=== PATIENT | male | born 1975 | race Caucasian/White ===

== ENCOUNTER 2021-01-30 09:20 | Observation (INO) | payer OTHER, SELFPAY ==
--- NOTE | 2021-01-30 10:29 | PC.NURSE ---
Day shift: Pt on AC unit at approx 1030. Direct admit for [facility]. He is here for chest pain. Trops x3 neg per RN report. He can ambulate and is steady on his feet. Dr Vicente made aware that he is here now (1040). Spouse in room for support. Denies any chest pain or nausea. VS WNL. HR 79. RA 99%. BP 133/70. Oriented to room and call light. Call light in reach. NOt a high fall risk.
--- NOTE | 2021-01-30 10:49 | PC.NURSE ---
Day shift: Pt from [facility] not from [facility] as written in first note.
[2021-01-30 10:50] VITALS: BMI 41.3
[2021-01-30] MEDS: INFLUENZA VACCINE 0.5 ML SYRINGE IM (11:51)
[2021-01-30 13:00] VITALS: BP 130/77; PULSE 84; RESP 23; TEMP 36.7; O2SAT 96
--- NOTE | 2021-01-30 13:05 | PC.NURSE ---
Day shift: Pt here from [facility] (direct admit) at approx 1100. He is A&Ox4. Denies any chest pain or nausea. VS remain WNL. RA 99%. Stress test and echo to be ordered by MD (likely). Pt would like to establish w/ motion study engineer. Pt has Hx of TN in 2014 w/ 2 stents being placed. He is low fall risk and steady on his feet. IV in rt FA is SL. OOB and independent to BR. No MD orders placed at this time. Tele ordered and is NSR per ICU at this time.
--- NOTE | 2021-01-30 13:58 | PC.NURSE ---
Day shift: MD orders ordered and Pt informed of the orders. Tele, SCD's, NPO at midnight, stress test tomorrow, and chest pain (AL) meds. Will continue w/ plan of care.
[2021-01-30 14:03] VITALS: O2SAT 99
[2021-01-30 14:48] LABS: Cholesterol 241 mg/dL (140-199); HDL Cholesterol 35 mg/dL (40-60); LDL Cholesterol Calculated 159 mg/dL (<100); Triglycerides 236 mg/dL (35-150)
[2021-01-30 14:58] LABS: Troponin I < 0.012 ng/mL (0.01-0.034)
[2021-01-30 16:34] VITALS: BP 132/74; PULSE 75; RESP 18; TEMP 36.2; O2SAT 96
--- NOTE | 2021-01-30 17:12 | P.HP_ITS ---
History of Present Illness History of Present Illness Date Patient Seen: 01/30/21 Chief complaint: chest pain Narrative: The patient is a 45-year-old male with a history of, hypertension, hyperlipidemia, and coronary disease status post myocardial infarction in 2017. The patient underwent 2 drug-eluting stents placement at that time. Patient had 1 stent to the mid LAD and 1 placed in the proximal LAD. He had no further symptoms following his procedures. Patient underwent a stress test approximately 1 year ago on August 14 2018. The stress test was unremarkable and showed no evidence of ischemia, no wall motion abnormalities, and no LV dysfunction. Te patient had been well until this morning when EN route to work while driving he developed chest tightness. The patient reports this happened at about 530 in the morning. When he arrived at work he took 1 nitro which did not resolve his symptoms. He said he rated it at about 8 out a 9 in 10. There was no radiation to his arm. There was no diaphoresis. No nausea. Patient did feel hot. He took a 2nd nitro 5 minutes later and had no resolution of his pain. As such she went to [facility] for evaluation. At [facility] the patient underwent an EKG which showed no acute ST T wave changes. Troponin was negative. He was transferred to [facility] in [place] for definitive workup of unstable angina. Patient had a heart score of 5. Patient reports he was treated with aspirin and Plavix following stent placement but that has discontinued it. He has been off his statin for the past 2 months. Patient is admitted to the hospital for definitive workup and evaluation of chest pain. Patient History Medical History (Updated 01/30/21 @ 17:26 by Jil Vicente MD) Heart attack Hyperlipemia Hypertension Obstructive sleep apnea Surgical History Stented coronary artery Family & Social History Family History (Updated 01/30/21 @ 17:17 by Jil Vicente MD) Mother Heart disease Diabetes mellitus Social History: household members spouse Prior Living Arrangements House Safety & Behavioral: Feels Safe in Current Yes Environment Been Physically Hurt or No Threatened By a Person Suicidal Ideation Description None Suicide Plan Description No Plan Tobacco & Substance use: Tobacco type cigarettes Smoking Status Former smoker alcohol intake current alcohol intake frequency holiday/special occasion Meds Home Medications and Allergies Home Medications Medication Instructions Recorded Confirmed Type aspirin [Adult Aspirin] 81 mg PO DAILY 01/30/21 01/30/21 History atorvastatin 80 mg PO DAILY 01/30/21 01/30/21 History lisinopril 10 mg PO DAILY 01/30/21 01/30/21 History nitroglycerin 0.4 mg SUBLINGUAL Q5-15M PRN 01/30/21 01/30/21 History Allergies Allergy/AdvReac Type Severity Reaction Status Date / Time bee venom protein (honey bee) Allergy Verified 01/30/21 11:29 Penicillins AdvReac Intermediate Verified 01/30/21 11:28 Review of Systems Review of Systems ROS: Yes All systems reviewed with the patient and are negative except as otherwise documented Exam Vital Signs (past 8 hours): - 01/30/21 13:00 01/30/21 14:03 01/30/21 16:34 Temperature 98.1 F 97.2 F L Pulse Rate 84 75 Respiratory Rate 23 18 Blood Pressure 130/77 132/74 Pulse Oximetry 96 99 96 Oxygen Delivery Method Room Air Oxygen Flow Rate 0 Narrative Exam Narrative: Pleasant gentleman lying in bed in no obvious distress HEENT: Normocephalic atraumatic, extraocular muscles are intact, oropharynx clear, neck is supple, Lungs: Clear to auscultation Cardiac exam: Regular rate and rhythm normal S1-S2 Abdomen: Soft nontender nondistended no appreciable hepatosplenomegaly Extremities: No edema Neuro exam: Cranial nerves 2-12 are intact strength is symmetric and sensation grossly intact gait is not assessed Psychiatric exam: Patient is awake and alert, answers questions appropriately normal mood, normal affect, no hallucination Objective Labs Labs: Laboratory Results - last 24 hr 01/30/21 01/30/21 14:15 14:15 Troponin I < 0.012 Triglycerides 236 H Cholesterol 241 H LDL Cholesterol, Calc 159 H HDL Cholesterol 35 L Assessment & Plan Assessment & Plan narrative: Impression 1. 45-year-old male with a history of coronary disease, remote history of myocardial infarction in 2016 followed by placement of 2 drug-eluting stents in the mid LAD and proximal LAD. Patient did have a stress test in August 2018 which was unremarkable. Patient presents again with significant clinical symptomatology of chest pain, given his history of hypertension hyperlipidemia and history of myocardial infarction coupled with a heart score 5 he is at high risk for recurrent coronary disease. As such the patient will be admitted to the hospital for rule out myocardial infarction. His initial cardiac enzymes are unremarkable. His initial EKG shows no acute ST-T changes and sinus rhythm. Patient is scheduled for a stress test tomorrow. His initial lipids came back markedly elevated with an LDL of 149. Patient will be placed on aspirin, resume his atorvastatin, nitro as needed, and morphine for pain 2. Hypertension Continue Lisinopril 3. Hyperlipidemia -resume atorvastatin 4. Morbid obesity -dietary consultation, patient's obesity puts him at high risk of increasing morbidity mortality given his history of hyperlipidemia and history of coronary disease will ask for dietary consultation 5. Obstructive sleep apnea Patient has a surrogate caregiver who is his was at the bedside Patient with placed on DVT prophylaxis Patient is a full code Patient will be admitted under observation with anticipated plan for discharge tomorrow
[2021-01-30 20:56] VITALS: BP 134/82; PULSE 76; RESP 18; TEMP 36.4
[2021-01-30 21:54] LABS: Troponin I < 0.012 ng/mL (0.01-0.034)
[2021-01-30] MEDS: ATORVASTATIN 20 MG TABLET 80 MG PO (21:56)
[2021-01-31] VITALS (7 sets, daily range): BP systolic 106–138; BP diastolic 64–89; PULSE 66–88; RESP 18–22; TEMP 36.3–36.6; O2SAT 94–99
--- NOTE | 2021-01-31 00:30 | PC.NURSE ---
0010: patient is alert and oriented. Breath sounds CTA with RA sat of 95%. HRR w/telemetry reading of SR. Denies nausea. BT present and is passing flatus. Denies dysuria, frequency or urgency with urination. Independent with mobility. Denies chest pain or SOB. Denies any pain/discomfort. Declines to wear SCD's so reminded to ankle wave. NPO after 0000 for stress test in a.m. Fall risk score is low.
[2021-01-31] MEDS: ENOXAPARIN 40 MG/0.4 ML SYRINGE SUBCUT (09:27)
[2021-01-31] MEDS: ASPIRIN EC 81 MG TABLET PO (09:27)
[2021-01-31] MEDS: lisinopriL 10 MG TABLET PO (09:27)
[2021-01-31] MEDS: SODIUM CHLORIDE 0.9% FLUSH 10 ML IV (09:27)
--- NOTE | 2021-01-31 12:35 | PC.NURSE ---
Day shift: Pt off unit at approx 1235 for stress test.
--- NOTE | 2021-01-31 13:53 | PC.NURSE ---
Day shift: Pt remains off of AC unit (1400).
--- NOTE | 2021-01-31 14:18 | PC.NURSE ---
Day shift: Pt back on AC unit at approx 1415 from stress test. Per Nuclear Med RN ok for Pt to eat and have caffeine now. Awaiting MD to read test. Placed back on tele. Pt denies any chest pain or nausea. Back in bed and resting comfotably w/ no complaints. He did ask when he can go home.
--- NOTE | 2021-01-31 15:33 | CM.DANOTE ---
Discharge Planning/Care Management DCP: assessment: case received and discussed in Team Rounds. Met now with pt and his Lydia. Pt is a 45 year old who has just moved here from [place] to [place] with intent to be close and helpful to aging family members. PCP: is not yet established. Payer: [employer] Pt has been in contact with cardiology: Dr. Craig and trying to secure an appointment. He asks when he will see a stud dairy cattle farmer as he states he was told last evening by nursing staff that a referral would be place. (left a vm for stud dairy cattle farmer on their extension.) Pt is waiting for Dr. Vicente to ready results off his stress test, completed this afternoon. DC likely today....DCP team will check in tomorrow if pt is still here. CM Discharge Assessment Start: 01/31/21 15:32 Freq: Status: Active Protocol: Document 01/31/21 15:32 ITV (Rec: 01/31/21 15:33 ITV [id number]) Discharge Planning Assessment Advance Directives? No Advance Directives on File No History Provided By Medical Record Prior Living Arrangements House Household Members spouse Independent with ADL's Yes Is patient alert and oriented? Yes
--- NOTE | 2021-01-31 17:16 | DIET.PN ---
Dietary Progress Note Assessment: 45y M admitted for chest pain referred to nutrition for HLD and obesity. Pt has pmhx of HTN, HLD, CAD, NC in 2017 c 2 stents. Pt stopped some of his medication including his statin which was causing large muscle group issues. 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 Barriers to good nutrition include: pt and are exhausted after work, doesn't cook, so often reliant on take out including pepperoni or sausage pizza. Pt packs lunch daily but often take out leftovers. Pt endorses drinking Mountain Dew a few times per week. Pt has tried several wheat breads but does not like them. Pt enjoys cooking but is often fatty meat based (prime rib, roast). Pt does like many seasonings such as garlic, thyme, and hot peppers. Pt now only buys 93% lean ground beef and is trying to be better with his added sodium intake. HT: 185cm WT: 143kg BMI: 41 Labs: TG 236 H, TC 241 H, LDL 159 H, HDL 35 L Nutrition Diagnosis: undesirable food choices r/t nutrition related knowledge deficit and picky eating aeb pt had NC before 45y, BMI 41, TG 236, TC 241, LDL 159, HDL 35, pt reports not liking wheat bread, turkey, pt reports regular intake of high saturated fat foods including mayonnaise, cheese, prime rib. Interventions: 1. Educated pt on role of dietary choices in his current health state. Discussed saturated fat, cholesterol. Pt willing to cut red meat back to 1-2x/mo, pt willing to cut back on cheese and to eat more chicken and pork loin. Pt does not like turkey or fish. 2. Educated pt on role of dietary fiber, especially soluble fiber on cardiovascular health. Pt likes refried beans and willing to only choose vegetarian version, pt willing to find recipes which use black beans to add in to rotation. 3. Recommend pt look into meal kit program such as [employer] to help take the stress out of meal planning and shopping a few days per week rather than choosing take out. It is similar if not cheaper with far higher quality fats and ingredients. 4. 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 Pt agreeable. EER: limit red meat and dairy, 2g Na max, 35g dietary fiber/d Monitoring/Evaluations: requested to see pt as outpatient to continue nutrition therapy
--- NOTE | 2021-01-31 17:21 | P.DS_ITS ---
History of Present Illness History of Present Illness Chief complaint: chest pain Narrative: The patient is a 45-year-old male with a history of, hypertension, hyperlipidemia, and coronary disease status post myocardial infarction in 2017. The patient underwent 2 drug-eluting stents placement at that time. Patient had 1 stent to the mid LAD and 1 placed in the proximal LAD. He had no further symptoms following his procedures. Patient underwent a stress test approximately 1 year ago on August 14 2018. The stress test was unremarkable and showed no evidence of ischemia, no wall motion abnormalities, and no LV dysfunction. Te patient had been well until this morning when EN route to work while driving he developed chest tightness. The patient reports this happened at about 530 in the morning. When he arrived at work he took 1 nitro which did not resolve his symptoms. He said he rated it at about 8 out a 9 in 10. There was no radiation to his arm. There was no diaphoresis. No nausea. Patient did feel hot. He took a 2nd nitro 5 minutes later and had no resolution of his pain. As such she went to [facility] for evaluation. At [facility] the patient underwent an EKG which showed no acute ST T wave changes. Troponin was negative. He was transferred to [facility] for definitive workup of unstable angina. Patient had a heart score of 5. Patient reports he was treated with aspirin and Plavix following stent placement but that has discontinued it. He has been off his statin for the past 2 months. Patient is admitted to the hospital for definitive workup and evaluation of chest pain. Discharge Providers Provider Date of admission: 01/30/21 09:20 Discharge Date: 01/31/21 Consults: 01/30/21 17:26 Consult to Dietitian, Adult Routine Comment: hyperlipidemia Reason For Exam: obesity Discharge provider: Jil Vicente MD Summary Hospital Course Discharge Diagnosis: 1. Chest pain, present on admission, stress test reveals normal perfusion no evidence of Ischemia 2. Hyperlipidemia 3. Hypertension 4. Morbid obesity, patient evaluated by solid fiber paster operator, started on outpatient dietary plan Hospital Course: Patient was admitted to the hospital having had an episode of substernal chest pressure when driving to work. His symptoms resolved in the emergency department. The patient had no recurrent symptoms. His cardiac enzymes were negative. His EKG was unremarkable. The patient did have a fasting lipid profile which was markedly elevated as the patient has been off his cholesterol medicine for the past month. He reports he does have a prescription at home but discontinued it due to some aching of the muscles. Patient has had no further pain since hospitalized. Given his perfusion scan showed no abnormality he will be discharged home with plans to follow-up as an outpatient with Dr. Diallo. The patient is currently looking for primary care provider in the [facility]. Patient had a total cholesterol of 241, with an LDL of 159. Status at Discharge Cognitive/behavioral status at discharge: oriented and calm ( ) Functional status at discharge: independent ambulation Overall status at discharge: patient is back to baseline Time Spent with Patient Time spent: Less than 30 minutes Exam Vital Signs (past 8 hours): - 01/31/21 11:59 01/31/21 12:04 01/31/21 15:46 Temperature 97.9 F 97.8 F Pulse Rate 72 88 Respiratory Rate 22 20 Blood Pressure 128/68 121/82 Pulse Oximetry 99 97 98 Oxygen Delivery Method Room Air Oxygen Flow Rate 0 Narrative Exam Narrative: Pleasant gentleman in no acute distress Lungs: Clear to auscultation Cardiac exam: Regular rate and rhythm normal S1-S2 with a 2/6 systolic ejection murmur Abdomen: Soft and nontender Extremities: No edema Objective Labs Labs: Laboratory Results - last 24 hr 01/30/21 21:25 Troponin I < 0.012 [facility] Medical History (Updated 01/30/21 @ 17:26 by Jil Vicente MD) Heart attack Hyperlipemia Hypertension Obstructive sleep apnea Surgical History Stented coronary artery Family History (Updated 01/30/21 @ 17:17 by Jil Vicente MD) Mother Heart disease Diabetes mellitus Social History household members: spouse Smoking Status: Former smoker alcohol intake: current Discharge Assessment & Plan Assessment and Plan Assessment: 1. Chest pain no evidence of ischemia 2. Hypertension 3. Hyperlipidemia 4. Morbid obesity Plan of Treatment: Discharge home Resume statin as an outpatient Continue dietary recommendation Follow-up with cardiology as scheduled Discharge Plan Discharge Plan Patient Disposition: Home Discharge orders & Medications Prescriptions: Continued Adult Aspirin 81 mg Tablet 81 mg PO DAILY RF: 0 lisinopril 10 mg tablet 10 mg PO DAILY RF: 0 atorvastatin 80 mg Tablet 80 mg PO DAILY RF: 0 nitroglycerin 0.4 mg Tablet, Sublingual 0.4 mg SUBLINGUAL Q5-15M PRN (Reason: Chest Pain) RF: 0 Diet/Activity/Treatments Diet: Low-fat and Low-sodium Activity: as tolerated Discharge Data Attending Provider: Jil Vicente
--- NOTE | 2021-01-31 17:38 | DI.NM.S_ITS ---
DATE OF SERVICE: PROCEDURE: Exercise perfusion study. DATE OF STUDY: 01/31/2021. INDICATIONS: Chest pain with known history of LAD stent in 2017 with hypertension and hyperlipidemia. RADIOPHARMACEUTICAL: 23.5 millicurie technetium-99m Myoview IV was injected at stress. Please note this is an exercise stress test perfusion study only. CARDIAC STRESS: The patient underwent exercise perfusion study under the supervision of an attending staff. Totally, he walked on Larry protocol for 8 minutes and 04 seconds. However, stage II of Larry protocol was maintained for the entire duration. The patient has significant dyspnea during exertion without any chest pain. Achieved 78% of target heart rate. Resting blood pressure 108/70 and peak blood pressure 160/72 mmHg. Functional aerobic impairment positive 67%. Maximum heart rate was about 137 beats per minute. Baseline rate and rhythm was sinus with diffuse repolarization changes. During stress, no convincing ischemic changes or arrhythmias seen. RAW DATA: There is increased subdiaphragmatic activity. Patient's weight is 313 pounds. GATED STUDY: Stress LV ejection fraction 85% without any obvious wall motion abnormalities. Stress end-diastolic volume 112 mL. Lung/heart ratio 0.37, which is within normal limits. MYOCARDIAL PERFUSION SCAN: Stress supine images revealed large size, moderate to severely decreased perfusion of inferior wall and inferior apex, which got completely resolved during prone images suggestive of diaphragmatic tissue attenuation artifact. On prone images, there was mildly decreased perfusion of distal anterior septum, which was not seen during stress supine suggestive of shifting tissue attenuation artifact. CONCLUSION: I will call this study a normal myocardial perfusion study with evidence of diaphragmatic tissue attenuation artifact which got completely resolved during stress prone images with evidence of some shifting tissue attenuation artifact as well. Poor exercise tolerance. Functional aerobic impairment positive 67%. Submaximal exercise stress test. The patient achieved 78% of target heart rate. Preserved left ventricular function without any obvious wall motion abnormalities. No significant arrhythmia seen. Discussed the findings with Dr. Vicente. Vargas Brizuela - JOE/tamar/jose doc#: [id number]/job#: [id number] dd: 01/31/2021 16:57:00 dt: 01/31/2021 17:20:00 DICTATING MD/COPIES TO: Marsha Anderson MD COPIES MNE: GRIFFIN;
--- NOTE | 2021-01-31 18:25 | PC.NURSE ---
Report received, care assumed. A&Ox3. VSS. Denies pain. Discharge orders received post-stress test. IV dc'd. Discharge instructions given orally and in writing. Pt. and spouse verbalize understanding. Pt. discharged via wheelchair to private vehicle.
--- OUTSIDE RECORDS SUMMARY | 2021-03-09 09:14 | XMS_ITS | Referral Summary ---
:1975 Author Organization [facility] Address [address] [place] [address] Care Team Providers Name Role Phone DO Merrick Primary Care Provider Reason for Referral Consultation (Routine) Status Reason Specialty Diagnoses / Referred By Referred To Procedures Contact Contact Authorized Specialty Sleep Medicine Diagnoses RADHA on CPAP [facility] DO [facility] Required [address] [place] [address] [place] [address] Phone: Fax: Electronically signed by Soryaa Sin DO atConsultation (Routine) Status Reason Specialty Diagnoses / Referred By Referred To Procedures Contact Contact Authorized Specialty Nutrition Diagnoses Mixed hyperlipidemia BMI 40.0-44.9, adult ([facility]/H[facility]) [facility] Services Required DO Soraya [address] [place] [address] [address] [place], Phone: [place] [phone] Electronically signed by Soraya Sin DO at Reason for Visit Reason Comments Establish Care Encounter Details Date Type Department Care Team Description 03/06/2021 Office Visit [facility] Soraya Sin DO Pre-diabetes (Primary Dx); [facility] Division [address] History of anaphylaxis; [place], [place] Mixed hyperlipidemia; [address] [place] [address] Division [address] BMI 40.0-44.9, adult ([facility]); [place] [phone] RADHA on CPAP; [place], [place] Coron emmy artery disease involving [place] coronary artery of [place] heart without angina pectoris; [address] Essential hypertension; [phone] Encounter for m edical examination to establish care; Rib pain on lef t side Allergies Active Allergy Reactions Severity Noted Date Comments Penicillins Anaphylaxis High 08/23/2017 Venom-Honey Bee Anaphylaxis High 07/14/2020 documented as of this encounter (statuses as of 03/08/2021) Medications Medication Sig Dispensed Refills Start End Date Status Date lisinopriL Take 10 mg by 0 Activ e (PRINIVIL) 10 mg mouth daily [address] 0.4 mg 0 Act jennifer (NITROSTAT) 0.4 mg under the tongue 0 SL tablet every 5 minutes as needed ezetimibe (ZETIA) Take 1 tablet 90 tablet 3 02/18/20 Active 10 mg tablet (10 mg total) by 1 22 mouth every morning rosuvastatin Take 1 tablet 90 tablet 3 02/18/20 Act jennifer (CRESTOR) 40 mg (40 mg total) by 1 22 tablet mouth nightly aspirin 81 mg Take 1 tablet 90 tablet 3 02/18/20 Ac tive chewable tablet (81 mg total) by 1 22 mouth daily multivitamin Take 1 tablet by 0 Active (multivitamin) mouth daily tablet tablet ascorbic acid, Take 1,000 mg by 0 Active vitamin C, mouth daily (vitamin C) 1,000 mg tablet co-enzyme Q-10 30 Take 30 mg by 0 Active mg capsule mouth 3 (three) times a day omega Take 2,000 mg by 0 Act jennifer [id number]-oux-fish oil mouth 2 (two) (Fish Oil) 1,000 times a day mg (120 mg-180 mg) capsule ashwagandha root Take by mouth 0 Active extract 300 mg capsule EPINEPHrine Inject 0.3 mL 2 each 3 04/05/20 Acti ve (EPIPEN) 0.3 (0.3 mg total) 1 21 mg/0.3 mL into the thigh injection as needed for syringeIndications anaphylaxis : History of anaphylaxis EPINEPHrine Inject 0.3 mg 0 03/06/20 Disc ontinued (EPIPEN) 0.3 into the thigh 0 21 (R eorder) mg/0.3 mL injection syringe documented as of this encounter (statuses as of 03/08/2021) Active Problems Problem Noted Date History of anaphylaxis 03/06/2021 Last Assessment & Plan: To bee stings and penicillin. Refilled EpiPen at this time Pre-diabetes 03/06/2021 Last Assessment & Plan: Repeat hemoglobin A1c ordered for furthe r risk stratification RADHA on CPAP 03/06/2021 Last Assessment & Plan: Reports compliance with CPAP. Continue. He would like to establish care with sleep medicine here Essential hypertension 03/06/2021 Last Assessment & Plan: Hypertension is well-controlled. Continue lisinopril 10 mg daily. Check home blood pressure readings Continue current treatment regimen. Dietary sodium restriction. Weight loss. Regular aerobic exercise. Blood pressure will be reassessed at the next regular appointment. Rib pain on left side 03/06/2021 Last Assessment & Plan: After a fall. Suspect contusion. No al arming findings on exam. Patient has stable vital signs. We discussed rib imaging b ut since symptoms are improving, we have decided to defer at this time. Continue conservative management Encounter for medical examination to establish care Last Assessment & Plan: Patient is due for Tdap but would like to get Covid vaccination first. Otherwise up-to-date on age-appropriate immunizations and screenings. Old VT (myocardial infarction) 02/17/2021 Mixed hyperlipidemia 02/17/2021 Last Assessment & Plan: Lipid abnormalities are unchanged. Nutritional counseling was provided. and Pharmacotherapy as ordered. Lipids will be reassessed in 6 months. CAD (coronary artery disease) 08/23/2017 Overview: 08/20/2017-LHC([employer]): EF 60-6 5%, MARY/ LAD, 20-30% L main stenosis, 30-40% stenosis of LCx, 40% stenosis of the mRCA. 08/20/2017-TTE ([employer]): EF 60- 65%, distal anteroseptal and apical hypokinesis Trace MR. Last Assessment & Plan: Formatting of this note might be differe nt from the original. Stable and asymptomatic at this time in regards to CAD. Continue aggressive secondary risk factor modification. Metoprolol has the propensity to contribute to weight gain. Given he is more than a yea r out from his VT with a normal LVEF, we will discontinue this and increase Lisinopril to 10 mg daily to see if he has an easier time losing weight. He will also stop Plavix as it has been two years si nce stent implantation. Call with any r ecurrence of anginal symptoms. Nitro refill given and use was reviewed. We discussed the importance of diet and exercise at length today. Last Assessment & Plan: Coronary artery disease is unchanged. Continue current treatment regimen. Dietary sodium restriction. Weight loss. Regular aerobic exercise. Continue to follow-up with cardiology as scheduled Cardiac status will be reassessed in 6 m [facility]. documented as of this encounter (statuses as of 03/08/2021) Social History Tobacco Use Types Packs/Day Years Used Date Former Smoker Quit: 08/2017 Smokeless Tobacco: Current User Chew Alcohol Use Drinks/Week oz/Week Comments Yes rare Sex Assigned at Date Recorded Not on file Job Start Date Occupation Industry Not on file Not on file Not on file documented as of this encounter Last Filed Vital Signs Vital Sign Reading Time Taken Comments Blood Pressure 114/77 03/06/2021 3:09 PM PDT Pulse 86 03/06/2021 3:09 PM PDT Temperature 37.4 ??C (99.3 ??F) 03/06/2021 3:09 PM PDT Respiratory Rate - - Oxygen Saturation 98% 03/06/2021 3:09 PM PDT Inhaled Oxygen Concentration - - Weight 144 kg (318 lb) 03/06/2021 3:09 PM PDT Height - - Body Mass Index 41.96 02/17/2021 11:37 AM PDT documented in this encounter Patient Instructions Patient InstructionsSoraya Sin DO - 03/06/2021 3:20 PM PDTIt was a pleasure seeing you today! Here is a summary of what we discussed in clinic: -Let me know if your left rib pain does not improve or if he gets worse. We will decide if we need to do imaging of the ribs at that time -I have ordered a hemoglobin A1c, 3-month average of blood sugars which you can do at the same time as your labs with Dr. Gaines -I have sent the referral to your electric fork operator -Sent a referral to sleep medicine -Please let me know if anything comes up before your next follow-up appointment with me documented in this encounter Progress Notes Soraya Sin DO - 03/06/2021 3:20 PM PDT [facility] Internal Medicine Clinic Note Patient Name: Vargas Brizuela Date of : 1975 Reason for visit: had concerns including Establish Care. Subjective History of Present Illness HPI Vargas Brizuela is a 46 y.o. male with a past medical history of CAD s/p stent placements, hypertension, hyperlipidemia, RADHA on CPAP who presents today to establish care. Regarding his history of CAD, patient reports that he had an VT in 2017 and underwent 2 stent placements. He currently establish care with a new hot stone setter, Dr. Gaines after he was hospitalized at [facility] for unstable angina. Current regimen includes aspirin 81 mg daily, rosuvastatin 40 mgnightly, lisinopril 10 mg daily. Last time he has used his sublingual nitro was prior to his hospitalization. Currently denies any chest pains. Blood pressures are typically well controlled althoughhe notes they are slightly higher when he uses his wrist cuff, SBP in the 140s He is interested in a electric fork operator referral. Saw electric fork operator while at the hospital, Rosalind Cortes would like to continue following up with her. Patient needs a refill on his EpiPen's. He has history of anaphylaxis to bee stings as well as penicillin. Patient also mentions that he is having some ongoing left side discomfort. He fell off a boat about4 to 5 weeks ago, which resulted in bruising of the left rib area. Initially had some difficulty with deep breathing but that has resolved since. He notes that with certain movements he has some discomfort that he experiences at that area He also mentions that he has right knee meniscal tear for which he is seeing orthopedic surgeon Regards to healthcare maintenance, last Tdap was over 10 years ago and he is due at this time but heis hoping to get his Covid vaccinations first. He denies any family history of colorectal or prostate cancer. Review of Systems Constitutional: Negative. Negative for chills and fever. HENT: Negative. Eyes: Negative. Respiratory: Negative for cough, chest tightness, shortness of breath and wheezing. Left sided chest wall/rib pain Cardiovascular: Negative. Negative for chest pain, palpitations and leg swelling. Gastrointestinal: Negative. Negative for abdominal pain, blood in stool, diarrhea, nausea and vomiting. Endocrine: Negative. Genitourinary: Negative. Negative for dysuria and frequency. Musculoskeletal: Positive for arthralgias. Skin: Negative. Allergic/Immunologic: Negative. Neurological: Negative. Negative for syncope, weakness, numbness and headaches. Hematological: Negative. Psychiatric/Behavioral: Negative. Negative for suicidal ideas. Past Medical History: Diagnosis Date ??? Mixed hyperlipidemia 02/17/2021 ??? Old VT (myocardial infarction) 02/17/2021 Past Surgical History: Procedure Laterality Date ??? KNEE ARTHROSCOPY Right Allergies Allergen Reactions ??? Penicillins Anaphylaxis ??? Venom-Honey Bee Anaphylaxis Family History Problem Relation Age of Onset ??? Heart disease Mother 3 heart attacks mom age 40 ??? Coronary artery disease Paternal Grandmother Social History Patient reports that he quit smoking about 3 years ago. His smokeless tobacco use includes chew. He reports current alcohol use. He reports current drug use. Drug: Marijuana. Current Medication List Sig ascorbic acid, vitamin C, (vitamin C) 1,000 mg tablet Take 1,000 mg by mouth daily ashwagandha root extract 300 mg capsule Take by mouth co-enzyme Q-10 30 mg capsule Take 30 mg by mouth 3 (three) times a day multivitamin (multivitamin) tablet tablet Take 1 tablet by mouth daily omega 8-pto-aiy-fish oil (Fish Oil) 1,000 mg (120 mg-180 mg) capsule Take 2,000 mg by mouth 2 (two)times a day aspirin 81 mg chewable tablet Take 1 tablet (81 mg total) by mouth daily EPINEPHrine (EPIPEN) 0.3 mg/0.3 mL injection syringe Inject 0.3 mL (0.3 mg total) into the thigh asneeded for anaphylaxis ezetimibe (ZETIA) 10 mg tablet Take 1 tablet (10 mg total) by mouth every morning lisinopriL (PRINIVIL) 10 mg tablet Take 10 mg by mouth daily nitroglycerin (NITROSTAT) 0.[address] 0.4 mg under the tongue every 5 minutes as needed rosuvastatin (CRESTOR) 40 mg tablet Take 1 tablet (40 mg total) by mouth nightly EPINEPHrine (EPIPEN) 0.3 mg/0.3 mL injection syringe (Discontinued) Inject 0.3 mg into the thigh There is no immunization history on file for this patient. Objective Vital Signs BP 114/77 (BP Location: Left arm, Patient Position: Sitting) Pulse 86 Temp 37.4 ??C (99.3 ??F)(Temporal) Wt (!) 144 kg SpO2 98% BMI 41.96 kg/m?? Physical Exam Constitutional: General: He is not in acute distress. Appearance: He is well-developed. HENT: Head: Normocephalic and atraumatic. Eyes: Pupils: Pupils are equal, round, and reactive to light. Cardiovascular: Rate and Rhythm: Normal rate and regular rhythm. Heart sounds: Normal heart sounds. No murmur. Pulmonary: Effort: Pulmonary effort is normal. Breath sounds: Normal breath sounds. No wheezing. Comments: Mild tenderness to deep palpation of a particular point of the left anterior lower rib area. No evidence of hematoma or bruising noted Chest: Chest wall: Tenderness present. Abdominal: General: Bowel sounds are normal. There is no distension. Palpations: Abdomen is soft. Tenderness: There is no abdominal tenderness. Musculoskeletal: General: Normal range of motion. Cervical back: Normal range of motion and neck supple. Right lower leg: No edema. Left lower leg: No edema. Skin: General: Skin is warm and dry. Capillary Refill: Capillary refill takes less than 2 seconds. Neurological: Mental Status: He is alert and oriented to person, place, and time. Psychiatric: Behavior: Behavior normal. Assessment and Plan 1. Pre-diabetes (Primary) Assessment & Plan: Repeat hemoglobin A1c ordered for further risk stratification Orders: - Hemoglobin A1c; Future; Expected date: 03/06/2021 2. History of anaphylaxis Assessment & Plan: To bee stings and penicillin. Refilled EpiPen at this time Orders: - EPINEPHrine; Inject 0.3 mL (0.3 mg total) into the thigh as needed for anaphylaxis Dispense: 2 each; Refill: 3 3. Mixed hyperlipidemia Assessment & Plan: Lipid abnormalities are unchanged. Nutritional counseling was provided. and Pharmacotherapy as ordered. Lipids will be reassessed in 6 months. Orders: - Ambulatory referral to Nutrition Services 4. BMI 40.0-44.9, adult ([facility]) - Ambulatory referral to Nutrition Services 5. RADHA on CPAP Assessment & Plan: Reports compliance with CPAP. Continue. He would like to establish care with sleep medicine here Orders: - Ambulatory referral to Sleep Medicine 6. Coronary artery disease involving [place] coronary artery of [place] heart without angina pectoris Assessment & Plan: Coronary artery disease is unchanged. Continue current treatment regimen. Dietary sodium restriction. Weight loss. Regular aerobic exercise. Continue to follow-up with cardiology as scheduled Cardiac status will be reassessed in 6 months. 7. Essential hypertension Assessment & Plan: Hypertension is well-controlled. Continue lisinopril 10 mg daily. Check home blood pressure readings Continue current treatment regimen. Dietary sodium restriction. Weight loss. Regular aerobic exercise. Blood pressure will be reassessed at the next regular appointment. 8. Encounter for medical examination to establish care Assessment & Plan: Patient is due for Tdap but would like to get Covid vaccination first. Otherwise up-to-date on age-appropriate immunizations and screenings. 9. Rib pain on left side Assessment & Plan: After a fall. Suspect contusion. No alarming findings on exam. Patient has stable vital signs. We discussed rib imaging but since symptoms are improving, we have decided to defer at this time. Continue conservative management Follow up: Return visit in 6 months. Patient Instructions It was a pleasure seeing you today! Here is a summary of what we discussed in clinic: -Let me know if your left rib pain does not improve or if he gets worse. We will decide if we need to do imaging of the ribs at that time -I have ordered a hemoglobin A1c, 3-month average of blood sugars which you can do at the same time as your labs with Dr. Gaines -I have sent the referral to your electric fork operator -Sent a referral to sleep medicine -Please let me know if anything comes up before your next follow-up appointment with me Portions of today's documentation have been created with the assistance of voice recognition software. Therefore, it may contain anomalous punctuation, anomalous independent misrecognitions, word substitutions, insertions or omissions. Occasional wrong-word or sound- alike substitutions may also occur, all due to the inherent limitations of voice recognition software. Attempts to correct the above have been made by Soraya Sin DO, but it is recommended that the chart be read carefully to recognize, using context, where the substitutions may have occurred. Electronically signed by: Soraya Sin DO 03/06/2021lectronically signed by Soraya Sin DO at 03/06/2021 5:41 PM PDT documented in this encounter Miscellaneous Notes Assessment & Plan Note - Soraya Sin DO - 03/06/2021 5:40 PM PDT Associated Problem(s): Encounter for medical examination to establish care Patient is due for Tdap but would like to get Covid vaccination first. Otherwise up-to-date on age-appropriate immunizations and screenings. ssessment & Plan Norbert - Soraya Sin DO - 03/06/2021 5:40 PM PDTAssociated Problem(s): Rib pain on left sideAfter a fall. Suspect contusion. No alarming findings on exam. Patient has stable vital signs. We discussed rib imaging but since symptoms are improving, we have decided to defer at this time. Continue conservative management ssessment & Plan Note - Soraya Sin DO - 03/06/2021 5:39 PM PDTAssociated Problem(s): Essential hypertensionHypertension is well- controlled. Continue lisinopril 10 mg daily. Check home blood pressure reading s Continue current treatment regimen. Dietary sodium restriction. Weight loss. Regular aerobic exercise. Blood pressure will be reassessed at the next regular appointment. ssessment & Plan Note - Soraya Sin DO - 03/06/2021 5:39 PM PDTAssociated Problem(s): CAD (coronary artery disease)Coronary artery disease is unchanged. Continue current treatment regimen. Dietary sodium restriction. Weight loss. Regular aerobic exercise. Continue to follow-up with cardiology as scheduled Cardiac status will be reassessed in 6 months. ssessment & Plan Soraya Caban DO - 03/06/2021 5:39 PM PDTAssociated Problem(s): RADHA on CPAPReports compliance with CPAP. Continue. He would like to establish care with sleep medicine here ssessment & Plan Norbert - Soraya Sin DO - 03/06/2021 5:38 PM PDT Associated Problem(s): Pre-diabetesRepeat hemoglobin A1c ordered for further risk stratification ssessment & Plan Note - Soraya Sin DO - 03/06/2021 5:38 PM PDTAssociated Problem(s): History of anaphylaxisTo bee stings and penicillin. Refilled EpiPen at this time ssessment & Plan Soraya Caban DO - 03/06/2021 5:38 PM PDTAssociated Problem(s): Mixed hyperlipidemiaLipid abnormalities are unchanged. Nutritional counseling was provided. and Pharmacotherapy as ordered. Lipids will be reassessed in 6 months. documented in this encounter Plan of Treatment Upcoming Encounters Date Type Specialty Care Team Description 05/05/2021 Office Visit Cardiology Cosme Gaines MD [address] [facility] [address] [place] [address] [phone] Scheduled Orders Name Type Priority Associated Diagnoses Order S chedule Hemoglobin A1c Lab Routine Pre-diabetes Expected: 01/2021 (Approximate), Expires: 2021 Scheduled Referrals Name Type Priority Associated Diagnoses Order S chedule XTRNL Referral to Outpatient Referral Routine Mixed hype rlipidemia Ordered: Nutrition Services BMI 40.0-44.9, adult 0 03/06/2021 ([facility]) [facility] MV Referral to Outpatient Referral Routine RADHA on CPAP Or dered: [facility] 03/06/2021 documented as of this encounter Visit Diagnoses Diagnosis Pre-diabetes - Primary Other abnormal glucose History of anaphylaxis Mixed hyperlipidemia BMI 40.0-44.9, adult ([facility]) RADHA on CPAP Coronary artery disease involving [place] coronary artery of [place] heart without angina pectoris Essential hypertension Unspecified essential hypertension Encounter for medical examination to [facility] Rib pain on left side documented in this encounter documented as of this encounter Advance Directives Documents on File Type Date Recorded Patient Aviation Engineer Explanati on Advance Directives and Living Will
--- OUTSIDE RECORDS SUMMARY | 2021-03-09 09:15 | XMS_ITS | Referral Summary ---
:1975 Author Organization [facility] Address [address] [place] [address] Care Team Providers Name Role Phone DO Merrick Primary Care Provider Reason for Referral Consultation (Routine) Status Reason Specialty Diagnoses / Referred By Referred To Procedures Contact Contact Authorized Specialty Sleep Medicine Diagnoses RADHA on CPAP [facility] DO [facility] Required [address] [place] [address] [place] [address] Phone: Fax: Electronically signed by Soraya Sin DO atConsultation (Routine) Status Reason Specialty Diagnoses / Referred By Referred To Procedures Contact Contact Authorized Specialty Nutrition Diagnoses Mixed hyperlipidemia BMI 40.0-44.9, adult ([facility]/HCC) [facility] Services Required DO Soraya [address] [place] [address] [address] [place], Phone: [place] [phone] Electronically signed by Soraya Sin DO at Reason for Visit Reason Comments Establish Care Encounter Details Date Type Department Care Team Description 03/06/2021 Office Visit [facility] Soraya Sin DO Pre-diabetes (Primary Dx); Health Division [address] History of anaphylaxis; [place], [place] Mixed hyperlipidemia; [address] [place] [address] Division [address] BMI 40.0-44.9, adult ([facility]); [place] [phone] RADHA on CPAP; [place], [place] Coron emmy artery disease involving [place] coronary artery of [place] heart without angina pectoris; [address] Essential hypertension; [phone] Encounter for m edical examination to establish [...] Take 2,000 mg by 0 Act jennifer 7-keq-vit-fish oil mouth 2 (two) (Fish Oil) 1,000 [...] up-to-date on age-appropriate immunizations and screenings. Old NH (myocardial infarction) 02/17/2021 Mixed hyperlipidemia 02/17/2021 Last Assessment & Plan: Lipid abnormalities are unchanged. Nutritional counseling was provided. and Pharmacotherapy as ordered. Lipids will be reassessed in 6 months. CAD (coronary artery disease) 08/23/2017 Overview: 08/20/2017-LHC([facility]): EF 60-6 5%, MARY/ LAD, 20-30% L main stenosis, 30-40% stenosis of LCx, 40% stenosis of the mRCA. 08/20/2017-TTE ([facility]): EF 60- 65%, distal anteroseptal and apical hypokinesis Trace MR. Last Assessment & Plan: Formatting of this note might be differe nt from the original. Stable and asymptomatic at this time in regards to CAD. Continue aggressive secondary risk factor modification. Metoprolol has the propensity to contribute to weight gain. Given he is more than a yea r out from his NH with a normal LVEF, we will discontinue [...] status will be reassessed in [facility] documented as of this encounter (statuses [...] -I have sent the referral to your model maker plaster -Sent a referral to sleep medicine -Please let me know if anything comes up before your next follow-up appointment with me documented in this encounter Progress Notes Soraya Sin DO - 03/06/2021 3:20 PM PDT [facility] Note Patient Name: Vargas [...] CAD, patient reports that he had an NH in 2017 and underwent 2 stent placements. He currently establish care with a new designer architect, Dr. Gaines after he was hospitalized at [facility] for unstable angina. Current regimen includes aspirin 81 mg daily, rosuvastatin 40 mgnightly, lisinopril 10 mg daily. Last time he has used his sublingual nitro was prior to his hospitalization. Currently denies any chest pains. Blood pressures are typically well controlled althoughhe notes they are slightly higher when he uses his wrist cuff, SBP in the 140s He is interested in a model maker plaster referral. Saw model maker plaster while at the hospital, Rosalind Cortes would [...] Date ??? Mixed hyperlipidemia 02/17/2021 ??? Old NH (myocardial infarction) 02/17/2021 Past Surgical History: Procedure [...] Take 1 tablet by mouth daily omega 5-tyi-yxm-fish oil (Fish Oil) 1,000 mg (120 mg-180 [...] to Nutrition Services 4. BMI 40.0-44.9, adult ([facility]) - Ambulatory referral to Nutrition Services 5. RADHA on CPAP Assessment & Plan: Reports compliance with CPAP. Continue. He would like to establish care with sleep medicine here Orders: - Ambulatory referral to Sleep Medicine 6. Coronary artery disease involving [place] coronary artery of [place] heart without angina pectoris Assessment & Plan: [...] -I have sent the referral to your model maker plaster -Sent a referral to sleep medicine -Please [...] Cardiology Cosme Gaines MD [address] [facility] [address] [place] [address] [phone] Scheduled Orders Name Type Priority Associated Diagnoses Order S chedule Hemoglobin A1c Lab Routine Pre-diabetes Expected: 01/2021 (Approximate), Expires: 2021 Scheduled Referrals Name Type Priority Associated Diagnoses Order S chedule XTRNL Referral to Outpatient Referral Routine Mixed hype rlipidemia Ordered: Nutrition Services BMI 40.0-44.9, adult 0 03/06/2021 ([facility]) [facility] MV Referral to Outpatient Referral Routine RADHA on CPAP Or dered: [facility] 03/06/2021 documented as of this encounter Visit Diagnoses Diagnosis Pre-diabetes - Primary Other abnormal glucose History of anaphylaxis Mixed hyperlipidemia BMI 40.0-44.9, adult ([facility]) RADHA on CPAP Coronary artery disease involving [place] coronary artery of [place] heart without angina pectoris Essential hypertension Unspecified essential hypertension Encounter for medical examination to [facility] Rib pain on left side documented in this encounter documented as of this encounter Advance Directives Documents on File Type Date Recorded Patient Line Analyst Explanati on Advance Directives and Living Will
== END 2021-01-31 18:20 | disposition home or self-care (01) ==
PROVIDERS: Admitting Provider Internal Medicine; Referring Provider Internal Medicine; Visit Provider Internal Medicine
DX: R07.9 Chest pain, unspecified (principal); I10 Essential (primary) hypertension; E78.5 Hyperlipidemia, unspecified; I25.10 Atherosclerotic heart disease of native coronary artery without angina pectoris; I25.2 Old myocardial infarction; G47.33 Obstructive sleep apnea (adult) (pediatric); E66.01 Morbid (severe) obesity due to excess calories
CPT/HCPCS: 36415; 78451; 80061; 84484; 90471; 90656; 93005; 93017; G0378; A9502; G0379; J1650; Q2038

== ENCOUNTER → 2021-04-04 14:58 | Outpatient (CLI) | payer OTHER, SELFPAY ==
--- NOTE | 2021-04-04 15:03 | DIET.PN ---
Dietary Progress Note Assessment: Initial nutrition visit for HLD management after IP hospitalization. 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 Pt tried meal delivery services as suggested when admitted to hospital but is picky eater so stopped. Pt has been working on increasing fiber intake through food and metamucil, pt has been using triple zero yogurt and Evolve shakes as they are fortified with dietary fiber. Pt trying to stay hotels while working that has a kitchenette if staying more than 2 nights so he can prepare meals. Started limiting coffee to four measured cups, pt drinks adequate water at baseline so no issues with caffeine withdrawl headaches. During trainings, pt ordered grilled chicken salads all week while other employees were ordering steak and burgers. This empowered patient as by the end of the week other employees were starting to order salads too. Strategies for Meals: B: triple zero yogurts and Evolve protein shake L:doesn't usually eat lunch D:chicken/sirloin/pork loin in airfryer with broccoli and asparagus Sn: trail mix, mixed nuts, baby carrots, broccoli, up to 2 hb eggs plans to walk on treadmill 3x/w in hotel gym HT: 185cm WT:143kg BMI:41 Labs: TG 236 H, TC 241 H, LDL 159, HDL 35 Nutrition Diagnosis: ongoing undesirable food choices r/t nutrition related knowledge deficit and picky eating aeb pt had ID before 45y, BMI 41, TG 236, TC 241, LDL 159, HDL 35, pt reports not liking wheat bread, turkey, pt reports regular intake of high saturated fat foods including mayonnaise, cheese, prime rib. Interventions: 1. Helped pt to create on the road meal plan based on shopping and kitchen facilities available. 2. Discussed options at fast casual and fast food sites for when pt is staying in hotel that does not have kitchenette. Pt admits he now looks at what healthier options are available vs before he just ignored the healthy options. 3. Discussed role of physical activity in elevating HLD cholesterol, managing preDM, and morbid obesity. Pt willing to use hotel gym 3x/w. Monitoring/Evaluations: f/u in ~4w after next lipid panel pulled to discuss progress and problem solve barriers.
== END ==
PROVIDERS: PCP Student in an Organized Health Care Education/Training Program; Referring Provider Student in an Organized Health Care Education/Training Program; Visit Provider Student in an Organized Health Care Education/Training Program
DX: E78.5 Hyperlipidemia, unspecified (principal); E66.9 Obesity, unspecified; Z68.41 Body mass index [BMI] 40.0-44.9, adult; Z71.3 Dietary counseling and surveillance
CPT/HCPCS: 97802